=== PATIENT | male | born 1980 | race African-American/Black ===

== ENCOUNTER 2018-03-13 20:34 | Emergency (ER) | payer OTHER ==
[~2018-03-13] VITALS: Ht 172.7 cm; Wt 98.9 kg
[2018-03-13 20:53] VITALS: BP 149/80
== END 2018-03-14 01:30 | disposition home or self-care (01) ==
LOC: ER 20:34
DX: R09.89 Other specified symptoms and signs involving the circulatory and respiratory systems (principal); R09.81 Nasal congestion; R05 Cough; E11.9 Type 2 diabetes mellitus without complications; I10 Essential (primary) hypertension
CPT/HCPCS: 99281

== ENCOUNTER 2018-08-15 10:38 | Emergency (ER) | payer BC ==
[~2018-08-15] VITALS: Ht 167.6 cm; Wt 94.3 kg
--- NOTE | 2018-08-15 11:48 | RAD ---
ACUTE ABDOMEN SERIES History: Bloating and diarrhea x3 days. Comparison: None. Findings: Frontal chest and supine and upright views of the abdomen. Cardiomediastinal silhouette is normal. There is no pleural effusion or pneumothorax. The lungs are clear. No pneumoperitoneum is identified. There is an air-filled small bowel loop in the right lower abdomen that is normal caliber but near upper limits of normal. Bowel gas pattern is nonobstructive. No obvious organomegaly. Bones unremarkable. IMPRESSION: 1. No acute cardiopulmonary process. 2. Nonobstructive bowel gas pattern. Electronically signed by: Peter Gonzalez MD (08/15/2018 11:43 AM) [id number]
[2018-08-15 12:11] LABS: BASO % 1 % (0-3); EOS # 0.4 x10^3/uL (0.0-0.7); EOS % 5 % (0-3); HEMATOCRIT 44.1 % (39.0-53.0); HEMOGLOBIN 14.9 g/dL (13.0-17.5); LYMPH # 1.3 x10^3/uL (1.0-4.8); LYMPH % 19 % (24-48); MEAN CORPUSCULAR HEMOGLOBIN 30 pg (25-35); MEAN CORPUSCULAR HGB CONC 34 g/dL (31-37); MEAN CORPUSCULAR VOLUME 90 fL (79-100); MONO # 0.8 x10^3/uL (0.0-1.1); MONO % 12 % (0-9); NEUT # 4.3 x10^3uL (1.8-7.7); NEUT % 64 % (31-73); PLATELET COUNT 256 x10^3/uL (140-400); RED CELL DISTRIBUTION WIDTH 13.8 % (11.5-14.5); WHITE BLOOD COUNT 6.7 x10^3/uL (4.0-11.0)
--- NOTE | 2018-08-15 12:12 | PHYS DOC ---
Past Medical History Past Medical History: Asthma, Diabetes-Type II, High Cholesterol, Hypertension Past Surgical History: No Surgical History Alcohol Use: Occasionally Drug Use: None Adult General Chief Complaint Chief Complaint: NAUSEA/VOMITING/DIARRHA HPI HPI Patient is a 37 year old [f__sex] who presents with [] Review of Systems Review of Systems Constitutional: Denies fever or chills [] Eyes: Denies change in visual acuity, redness, or eye pain [] HENT: Denies nasal congestion or sore throat [] Respiratory: Denies cough or shortness of breath [] Cardiovascular: No additional information not addressed in HPI [] GI: Denies abdominal pain, nausea, vomiting, bloody stools or diarrhea [] : Denies dysuria or hematuria [] Musculoskeletal: Denies back pain or joint pain [] Integument: Denies rash or skin lesions [] Neurologic: Denies headache, focal weakness or sensory changes [] Endocrine: Denies polyuria or polydipsia [] All other systems were reviewed and found to be within normal limits, except as documented in this note. Current Medications Current Medications Current Medications Medications (Trade) Dose Ordered Sig/Jamin Start Time Stop Time Status Last Admin Dose Admin Ondansetron HCl (Zofran Odt) 4 mg 1X ONCE 08/15/18 12:45 08/15/18 12:46 UNV Allergies Allergies Allergies Coded Allergies Type Severity Reaction Last Updated Verified No Known Drug Allergies 08/15/18 No Physical Exam Physical Exam Constitutional: Well developed, well nourished, no acute distress, non-toxic appearance. [] HENT: Normocephalic, atraumatic, bilateral external ears normal, oropharynx moist, no oral exudates, nose normal. [] Eyes: PERRLA, EOMI, conjunctiva normal, no discharge. [] Neck: Normal range of motion, no tenderness, supple, no stridor. [] Cardiovascular:Heart rate regular rhythm, no murmur [] Lungs & Thorax: Bilateral breath sounds clear to auscultation [] Abdomen: Bowel sounds normal, soft, no tenderness, no masses, no pulsatile masses. [] Skin: Warm, dry, no erythema, no rash. [] Back: No tenderness, no CVA tenderness. [] Extremities: No tenderness, no cyanosis, no clubbing, ROM intact, no edema. [] Neurologic: Alert and oriented X 3, normal motor function, normal sensory function, no focal deficits noted. [] Psychologic: Affect normal, judgement normal, mood normal. [] Current Patient Data Vital Signs Vital Signs Date Time Temp Pulse Resp B/P (MAP) Pulse Ox O2 Delivery O2 Flow Rate FiO2 08/15/18 11:00 97.8 88 18 128/77 (94) 99 Room Air 97.8 Lab Values Laboratory Tests Test 08/15/18 11:50 White Blood Count 6.7 x10^3/uL (4.0-11.0) Red Blood Count 4.90 x10^6/uL (4.30-5.70) Hemoglobin 14.9 g/dL (13.0-17.5) Hematocrit 44.1 % (39.0-53.0) Mean Corpuscular Volume 90 fL (79-100) Mean Corpuscular Hemoglobin 30 pg (25-35) Mean Corpuscular Hemoglobin Concent 34 g/dL (31-37) Red Cell Distribution Width 13.8 % (11.5-14.5) Platelet Count 256 x10^3/uL (140-400) Neutrophils (%) (Auto) 64 % (31-73) Lymphocytes (%) (Auto) 19 % (24-48) L Monocytes (%) (Auto) 12 % (0-9) H Eosinophils (%) (Auto) 5 % (0-3) H Basophils (%) (Auto) 1 % (0-3) Neutrophils # (Auto) 4.3 x10^3uL (1.8-7.7) Lymphocytes # (Auto) 1.3 x10^3/uL (1.0-4.8) Monocytes # (Auto) 0.8 x10^3/uL (0.0-1.1) Eosinophils # (Auto) 0.4 x10^3/uL (0.0-0.7) Basophils # (Auto) 0.0 x10^3/uL (0.0-0.2) Sodium Level 140 mmol/L (136-145) Potassium Level 3.4 mmol/L (3.5-5.1) L Chloride Level 101 mmol/L (98-107) Carbon Dioxide Level 27 mmol/L (21-32) Anion Gap 12 (6-14) Blood Urea Nitrogen 18 mg/dL (8-26) Creatinine 1.0 mg/dL (0.7-1.3) Estimated GFR (Cockcroft-Gault) 101.2 BUN/Creatinine Ratio 18 (6-20) Glucose Level 103 mg/dL (70-99) H Calcium Level 9.2 mg/dL (8.5-10.1) Total Bilirubin 0.4 mg/dL (0.2-1.0) Aspartate Amino Transferase (AST) 24 U/L (15-37) Alanine Aminotransferase (ALT) 76 U/L (16-63) H Alkaline Phosphatase 48 U/L (46-116) Total Protein 7.7 g/dL (6.4-8.2) Albumin 3.8 g/dL (3.4-5.0) Albumin/Globulin Ratio 1.0 (1.0-1.7) Laboratory Tests 08/15/18 11:50 Laboratory Tests 08/15/18 11:50 EKG EKG [] Radiology/Procedures Radiology/Procedures []PATIENT: REGINO LOO LACCOUNT: [id number]#: [id number] : 1980 LOCATION: ER AGE: 37 SEX: M EXAM STATUS: REG ER ORD. PHYSICIAN: RONY ALTAMIRANO APRN REASON: bloating and watery diarrhea x 3 days PROCEDURE: ACUTE ABDOMEN SERIES ACUTE ABDOMEN SERIES History: Bloating and diarrhea x3 days. Comparison: None. Findings: Frontal chest and supine and upright views of the abdomen. Cardiomediastinal silhouette is normal. There is no pleural effusion or pneumothorax. The lungs are clear. No pneumoperitoneum is identified. There is an air-filled small bowel loop in the right lower abdomen that is normal caliber but near upper limits of normal. Bowel gas pattern is nonobstructive. No obvious organomegaly. Bones unremarkable. IMPRESSION: 1. No acute cardiopulmonary process. 2. Nonobstructive bowel gas pattern. Electronically signed by: Peter Gonzalez MD (08/15/2018 11:43 AM) [id number] DICTATED and SIGNED BY: PETER GONZALEZ MD DATE: 08/15/18 1139 Course & Med Decision Making Course & Med Decision Making Pertinent Labs and Imaging studies reviewed. (See chart for details) [] Dragon Disclaimer Dragon Disclaimer This electronic medical record was generated, in whole or in part, using a voice recognition dictation system. Departure Departure Impression: Primary Impression: Diarrhea Disposition: 01 HOME, SELF-CARE Condition: STABLE Referrals: HIRAL GREENFIELD PA-C (PCP) Patient Instructions: Diarrhea Additional Instructions: Increase fluids and rest. Follow-up with your primary care provider for recheck in 3 days if not improving or return to the emergency department if worsening. RONY ALTAMIRANO APRN Aug 15, 2018 12:12
[2018-08-15 12:26] LABS: CALCIUM 9.2 mg/dL (8.5-10.1); GFR 101.2; POTASSIUM 3.4 mmol/L (3.5-5.1)
[2018-08-15 12:33] LABS: ALBUMIN 3.8 g/dL (3.4-5.0); TOTAL BILIRUBIN 0.4 mg/dL (0.2-1.0); TOTAL PROTEIN 7.7 g/dL (6.4-8.2)
[2018-08-15 12:58] VITALS: BP 109/58
[2018-08-15] MEDS ORDERED: ONDANSETRON ODT 4 MG TAB.RAPDIS. PO ONE (13:15)
== END 2018-08-15 13:14 | disposition home or self-care (01) ==
LOC: ER 10:38
DX: R19.7 Diarrhea, unspecified (principal); R11.2 Nausea with vomiting, unspecified; J45.909 Unspecified asthma, uncomplicated; E11.9 Type 2 diabetes mellitus without complications; E78.00 Pure hypercholesterolemia, unspecified; I10 Essential (primary) hypertension
CPT/HCPCS: 36415; 74022; 80053; 85025; 99284; Q0162

== ENCOUNTER → 2018-10-03 | Outpatient (CLI) | payer BC ==
--- NOTE | 2018-10-03 10:03 | KCIC ---
Indication:Abdominal bloating for 3 months. TECHNIQUE: Grayscale, color Doppler and spectral waveform is of the abdomen obtained. COMPARISON:None FINDINGS: Pancreas is suboptimally visualized. No gallstones, pericholecystic fluid or gallbladder wall thickening. Liver measures 17 cm in longest dimension. Mildly increased echogenicity. Main portal vein is patent. Hepatic veins are patent. CBD measures 3 mm in diameter and is within normal limits. Right kidney measures 10.8 cm in length without hydronephrosis. IVC is within normal limits. Mid and distal aortic segments are not visualized due to overlying bowel gas. Spleen measures 11 cm in longest dimension and is normal in size. Left kidney measures 11 cm in length without hydronephrosis. Bladder is within normal limits. IMPRESSION: 1. Hepatic steatosis. 2. No cholelithiasis or sonographic evidence of acute cholecystitis. Electronically signed by: Christopher Causey DO (10/03/2018 10:00 AM) [facility]
== END | disposition home or self-care (01) ==
LOC: KCIC US 08:48
PROVIDERS: ATTEND Physician Assistant Surgical
DX: K76.0 Fatty (change of) liver, not elsewhere classified (principal); R14.0 Abdominal distension (gaseous)
CPT/HCPCS: 76700